=== PATIENT | male | born 1945 | race Caucasian/White ===

== ENCOUNTER 2016-09-20 19:56 | Emergency (ER) | payer OTHER ==
[2016-09-20 20:08] VITALS: BMI 24.1
--- NOTE | 2016-09-20 20:55 | PDOC ---
[id number]: HIGH BP Time Seen by Provider: 09/20/16 20:33 History Source: Patient Exam Limitations: No Limitations - History of Present Illness Initial Comments: 09/20/16 20:52 71-year-old male with no complaints presents with elevated blood pressure. Patient states his was taking her blood pressure and decided check his and was noted to be elevated so decided to bring him to the ER for further evaluation. Patient has no point of headache, dizziness, chest pain, shortness of breath, lower extremity edema, change in urine pattern, abdominal pain, or recent change in weight. Patient states had borderline hypertension numerous years ago but changed his lifestyle and never had to be placed on medication. Patient states has an appointment this upcoming week with a new physician although he was being seen by his previous PCP and had normal blood work done just this past May Timing/Duration: unsure Associated Symptoms: reports: denies symptoms Past History - Travel Traveled outside of the country in the last 30 days: No Close contact w/someone who was outside of country & ill: No - Past Medical History Allergies/Adverse Reactions: Allergies Allergy/AdvReac Type Severity Reaction Status Date / Time No Known Allergies Allergy Verified 09/20/16 20:08 Other medical history: hard of hearing - Psycho/Social/Smoking Cessation Hx Suicidal Ideation: No Smoking History: Never smoked Patient Lives Alone: No Lives with/in: spouse/SO Review of Systems - Review of Systems Able to Perform ROS?: Yes Constitutional: No: Symptoms Reported HEENTM: No: Symptoms Reported Respiratory: No: Symptoms reported Cardiac (ROS): No: Symptoms Reported ABD/GI: No: Symptoms Reported : No: Symptoms Reported Musculoskeletal: No: Symptoms Reported Integumentary: No: Symptoms Reported Neurological: No: Symptoms reported *Physical Exam - Vital Signs Last Vital Signs Temp Pulse Resp BP Pulse Ox 97.8 F 60 18 178/98 98 09/20/16 20:05 09/20/16 20:05 09/20/16 20:05 09/20/16 20:05 09/20/16 20:05 - Physical Exam General Appearance: Yes: Nourished, Appropriately Dressed. No: Apparent Distress HEENT: positive: EOMI, ORTIZ, TMs Normal, Pharynx Normal. negative: Pale Conjunctivae Neck: positive: Supple Respiratory/Chest: positive: Lungs Clear, Normal Breath Sounds. negative: Respiratory Distress, Accessory Muscle Use Cardiovascular: positive: Regular Rhythm, Regular Rate. negative: Murmur Gastrointestinal/Abdominal: positive: Soft. negative: Tenderness Extremity: positive: Normal Capillary Refill. negative: Pedal Edema Integumentary: positive: Normal Color, Warm, Moist Neurologic: positive: Motor Strength 5/5 (AMBULATORY) ED Treatment Course - LABORATORY CBC & Chemistry Diagram: 09/20/16 21:04 09/20/16 21:04 Medical Decision Making - Medical Decision Making 09/20/16 20:54 Patient with elevated BP reading at home but is asymptomatic. Patient does not have history of blood pressure presently but had history numerous years ago but change his lifestyle. Repeat blood pressure here slightly elevated. Due to patient's age AND HISTORY, I will do an EKG urine CBC and comp. *DC/Admit/Observation/Transfer Diagnosis at time of Disposition: Hypertension - Discharge Dispostion Disposition: HOME Condition at time of disposition: Stable - Referrals Referrals: Bernardino Kline MD [Primary Care Provider] - - Patient Instructions Printed Discharge Instructions: DI for High Blood Pressure Additional Instructions: Your Discharge Instructions: You must call primary care physician within 24 hours to arrange follow-up. Return to the Emergency Department with any new, persistent or worsening symptoms, for fever, chills, SOB, dizziness, headache or any other concerning changes that may occur.
[2016-09-20 21:13] LABS: BASOPHIL 0.7 % (0-2.0); EOSINOPHIL 1.5 % (0-4.5); MCH 25.9 pg (25.7-33.7); MCHC 32.5 g/dl (32.0-35.9); MEAN CELL VOLUME 79.6 fl (80-96); MEAN PLT VOLUME 8.2 fl (7.5-11.1); PLATELET COUNT 202 K/MM3 (134-434); RDW 15.4 % (11.9-15.9); WHITE BLOOD COUNT 6.2 K/mm3 (4.0-10.0)
[2016-09-20 21:24] LABS: URINE APPEARANCE CLEAR; URINE BILIRUBIN NEGATIVE (NEGATIVE); URINE BLOOD NEGATIVE (NEGATIVE); URINE COLOR AMBER; URINE GLUCOSE (UA) NEGATIVE (NEGATIVE); URINE KETONE NEGATIVE (NEGATIVE); URINE LEUK ESTERASE NEGATIVE (NEGATIVE); URINE NITRITE NEGATIVE (NEGATIVE); URINE PROTEIN NEGATIVE (NEGATIVE); URINE UROBILINOGEN NEGATIVE E.U./dl (0.2-1.0)
[2016-09-20 21:36] LABS: ALBUMIN 3.8 g/dl (3.4-5.0); ALK PHOS 70 U/L (45-117); ANION GAP 9 (8-16); BILIRUBIN,TOTAL 0.4 mg/dL (0.2-1.0); CALCIUM 9.2 mg/dL (8.5-10.1); CO2 26 mmol/L (21-32); COCKROFT - GAULT 66.38; CREATININE 1.1 mg/dL (0.7-1.3); GLUCOSE,RANDOM 93 mg/dL (74-106); SGOT/AST 20 U/L (15-37); SGPT/ALT 24 U/L (12-78)
--- NOTE | 2016-09-20 23:21 | PDOC ---
*Physical Exam - Vital Signs Last Vital Signs Temp Pulse Resp BP Pulse Ox 97.8 F 60 18 178/98 98 09/20/16 20:05 09/20/16 20:05 09/20/16 20:05 09/20/16 20:05 09/20/16 20:05 ED Treatment Course - LABORATORY CBC & Chemistry Diagram: 09/20/16 21:04 09/20/16 21:04 - ADDITIONAL ORDERS Additional order review: Laboratory Results 09/20/16 09/20/16 21:04 21:04 Sodium 140 Potassium 4.2 Chloride 105 Carbon Dioxide 26 Anion Gap 9 BUN 23 H Creatinine 1.1 Creat Clearance w eGFR > 60 Random Glucose 93 Calcium 9.2 Total Bilirubin 0.4 AST 20 ALT 24 Alkaline Phosphatase 70 Total Protein 7.0 Albumin 3.8 Urine Color Angie Urine Appearance Clear Urine pH 5.0 Urine Protein Negative Urine Glucose (UA) Negative Urine Ketones Negative Urine Blood Negative Urine Nitrite Negative Urine Bilirubin Negative Urine Urobilinogen Negative Ur Leukocyte Esterase Negative 09/20/16 21:04 RBC 5.24 MCV 79.6 L MCHC 32.5 RDW 15.4 MPV 8.2 Neutrophils % 55.0 Lymphocytes % 31.3 Monocytes % 11.5 H Eosinophils % 1.5 Basophils % 0.7 Medical Decision Making - Medical Decision Making 09/20/16 23:17 Patient endorsed to follow labs and disposition. Patient seen and evaluated is in no acute distress. labs reviewed not abnormality he will follow up with pmd on 09/23/16. I discussed the physical exam findings, ancillary test results and final diagnoses with the patient. I answered all of the patient's questions. The patient was satisfied with the care received and felt comfortable with the discharge plan and treatment plan. The Patient agrees to follow up with the primary care physician within 24-72 hours. *DC/Admit/Observation/Transfer Diagnosis at time of Disposition: Hypertension Qualifiers: Hypertension type: essential hypertension Qualified Code(s): I10 - Essential ( primary) hypertension - Discharge Dispostion Disposition: HOME Condition at time of disposition: Stable - Patient Instructions Printed Discharge Instructions: DI for High Blood Pressure Additional Instructions: Your Discharge Instructions: You must call primary care physician within 24 hours to arrange follow-up. Return to the Emergency Department with any new, persistent or worsening symptoms, for fever, chills, SOB, dizziness, headache or any other concerning changes that may occur.
[2016-09-21 01:10] VITALS: BP 155/85; PULSE 57; TEMP 97.7
--- NOTE | 2016-09-22 09:04 | EKG ---
Test Reason : Blood Pressure : / mmHG Vent. Rate : 057 BPM Atrial Rate : 057 BPM P-R Int : 196 ms QRS Dur : 076 ms QT Int : 402 ms P-R-T Axes : 066 029 053 degrees QTc Int : 391 ms SINUS BRADYCARDIA MODERATE VOLTAGE CRITERIA FOR LVH, MAY BE NORMAL VARIANT BORDERLINE ECG NO PREVIOUS ECGS AVAILABLE Confirmed by BRIDGET LOPEZ MD ([id number]) on 09/22/2016 9:04:20 AM Referred By: Confirmed By:BRIDGET LOPEZ MD
== END 2016-09-21 00:03 | disposition home or self-care (01) ==
LOC: JER 19:56
DX: I10 Essential (primary) hypertension (principal)
CPT/HCPCS: 36415; 80053; 81003; 85025; 93005; 93010; 99281-25

== ENCOUNTER 2017-08-21 08:38 | Day surgery (SDC) | payer OTHER ==
[2017-08-21] MEDS ORDERED: PROPOFOL 20 ML ONE ×2 (09:05)
[2017-08-21 09:14] VITALS: BMI 24.0
--- NOTE | 2017-08-21 09:48 | PROC ---
Endoscopy Procedure Endoscopy procedure completed. Please see scanned procedure report.
[2017-08-21 10:03] VITALS: TEMP 97.9
[2017-08-21 12:05] VITALS: BP 119/62; PULSE 61
== END 2017-08-21 10:40 | disposition home or self-care (01) ==
LOC: JASU-ENDO 08:38
PROVIDERS: ATTEND Internal Medicine Gastroenterology
PROC: 0DJD8ZZ Inspection of Lower Intestinal Tract, Via Natural or Artificial Opening Endoscopic (ICD-10-PCS; principal; 2017-08-21 09:30)
DX: Z12.11 Encounter for screening for malignant neoplasm of colon (principal); Z86.010 Personal history of colon polyps

== ENCOUNTER 2019-05-18 05:14 | Emergency (ER) | payer OTHER ==
[2019-05-18 05:28] VITALS: BMI 22.3
[2019-05-18] MEDS ORDERED: ONDANSETRON 4 MG/2 ML VIAL IVPUSH ONE (05:43)
[2019-05-18] MEDS ORDERED: SODIUM CHLORIDE 0.9% 500 ML INFUS.BAG IV ONE (05:43)
[2019-05-18] MEDS ORDERED: KETOROLAC TROMETHAMINE 15 MG/ML VIAL IVPUSH ONE (05:43)
--- NOTE | 2019-05-18 05:43 | PDOC ---
History of Present Illness - General History Source: Patient Exam Limitations: No Limitations <Kenya Hall - Last Filed: 05/18/19 07:13> - History of Present Illness Initial Comments: Saulo Schneider is a 74yo man with a PMH of well-controlled HTN who presents to the ED with left flank pain that started overnight. He states that the pain has also started to radiate to the left groin. Mr Schneider says that the pain started as a mild cramping pain but has become increasingly severe over the past few hours, now up to an 8/10. The pain waxes and wanes but has never completely resolved since starting. In addition to the pain, Mr Schneider also reports urinary frequency and urgency, as well as pain at the tip of his penis. He denies any dysuria or hematuria. He has not had any change in bowel habits, fever/chills, previous UTI or kidney stone. He does endorse nausea. <Nemo Trujillo - Last Filed: 05/18/19 07:37> - General Chief Complaint: Pain, Acute Stated Complaint: R/O KIDNEY PROBLEM Time Seen by Provider: 05/18/19 05:29 Past History <Kenya Hall - Last Filed: 05/18/19 07:13> - Past Medical History Anemia: No Asthma: No Cancer: No Cardiac Disorders: No CVA: No COPD: No CHF: No Dementia: No Diabetes: No GI Disorders: Yes (H/O COLON POLYPS) Disorders: No HTN: Yes Hypercholesterolemia: No Liver Disease: No Seizures: No Thyroid Disease: No - Surgical History Appendectomy: No Cholecystectomy: No Orthopedic Surgery: No - Psycho Social/Smoking Cessation Hx Smoking History: Never smoked Hx Alcohol Use: Yes Drug/Substance Use Hx: No Substance Use Type: None Hx Substance Use Treatment: No <Nemo Trujillo - Last Filed: 05/18/19 07:37> - Past Medical History Allergies/Adverse Reactions: Allergies Allergy/AdvReac Type Severity Reaction Status Date / Time No Known Allergies Allergy Verified 05/18/19 05:27 Home Medications: Ambulatory Orders Cholecalciferol (Vitamin D3) [Vitamin D3] 1,000 unit PO DAILY 08/21/17 Cyanocobalamin (Vitamin B-12) [Vitamin B12] 2,500 mcg PO DAILY 04/06/18 Magnesium 200 mg PO DAILY 08/21/17 [place]-3 Fatty Acids [[place]-3] 1,000 mg PO DAILY 08/21/17 Ondansetron [Zofran -] 4 mg PO TID PRN #9 tablet 05/18/19 Tamsulosin HCl [Flomax -] 0.4 mg PO HS #7 cap.er.24h 05/18/19 oxyCODONE HCL [Roxicodone -] 10 mg PO Q6H PRN #12 tablet MDD 4 05/18/19 Review of Systems - Review of Systems Comments:: General: No fevers, no chills, no weight or appetite change, no malaise HEENT: No changes in vision, no changes in hearing, no congestion, no sore throat CV: No chest pain, no palpitations, no LE edema Pulm: No SOB, no cough, no wheezing GI: No nausea or vomiting, no change in bowel habits, no melena : See HPI Musc: No back pain, no joint swelling, no recent injury Skin: No rash, no lesions, no erythema Endo: No excessive thirst, no heat/cold intolerance Heme: No unusual bruising or bleeding, no swollen glands Neuro: No syncope, no numbness/tingling, no focal weakness Vasc: No claudication Psych: No recent change in mood, no SI or HI <Nemo Trujillo - Last Filed: 05/18/19 07:37> *Physical Exam - Vital Signs Last Vital Signs Temp Pulse Resp BP Pulse Ox 98.0 F 54 L 20 180/99 H 100 05/18/19 05:15 05/18/19 05:15 05/18/19 05:15 05/18/19 05:15 05/18/19 05:15 <Kenya Hall - Last Filed: 05/18/19 07:13> - Vital Signs Last Vital Signs Temp Pulse Resp BP Pulse Ox 98.0 F 54 L 20 180/99 H 100 05/18/19 05:15 05/18/19 05:15 05/18/19 05:15 05/18/19 05:15 05/18/19 05:15 - Physical Exam General: Appears uncomfortable but in no acute distress HEENT: PERRL, EOMI, MMM, voice normal, normal neck ROM Cards: RRR, no murmur appreciated Pulm: Comfortable on room air, clear to auscultation bilaterally Abd: Soft, nontender, nondistended : Mild left CVA tenderness Ext: Atraumatic. No LE edema. ROM intact. Vasc: Extremities WWP. Neuro: A&Ox3, CN grossly intact, normal speech, motor/sensory grossly intact and symmetric Psych: Mood appropriate to situation <Nemo Trujillo - Last Filed: 05/18/19 07:37> ED Treatment Course - LABORATORY CBC & Chemistry Diagram: 05/18/19 06:06 05/18/19 06:06 - ADDITIONAL ORDERS Additional order review: Laboratory Results 05/18/19 06:06 Urine Color Yellow Urine Appearance Clear Urine pH 6.5 D Ur Specific [place] 1.012 Urine Protein Negative Urine Glucose (UA) Negative Urine Ketones Negative Urine Blood Negative Urine Nitrite Negative Urine Bilirubin Negative Urine Urobilinogen 0.2 Ur Leukocyte Esterase Negative 05/18/19 06:06 RBC 5.26 MCV 80.1 MCHC 32.9 RDW 14.9 MPV 7.8 Neutrophils % 78.4 D Lymphocytes % 11.7 D Monocytes % 8.3 Eosinophils % 0.8 Basophils % 0.8 - Medications Given in the ED: ED Medications Discontinued Medications Generic Name Dose Route Start Last Admin Trade Name Freq PRN Reason Stop Dose Admin Ketorolac Tromethamine 15 mg 05/18/19 05:43 05/18/19 06:08 Toradol Injection - IVPUSH 05/18/19 05:44 15 mg ONCE ONE Administration Ondansetron HCl 4 mg 05/18/19 05:43 05/18/19 06:09 Zofran Injection IVPUSH 05/18/19 05:44 4 mg ONCE ONE Administration Sodium Chloride 1,000 ml 05/18/19 05:43 05/18/19 06:10 Normal Saline - IV 05/18/19 05:44 1,000 ml ONCE ONE Administration <Kenya Hall - Last Filed: 05/18/19 07:13> - LABORATORY CBC & Chemistry Diagram: 05/18/19 06:06 05/18/19 06:06 - RADIOLOGY Radiology Studies Ordered: Category Date Time Status SPIRAL- RENAL-STONE CT [CT] Stat CT Scan 05/18/19 05:41 Ordered <Nemo Trujillo - Last Filed: 05/18/19 07:37> Medical Decision Making - Medical Decision Making 05/18/19 05:41 Saulo Schneider is a 74yo man with a PMH of well-controlled HTN who presents to the ED with left flank pain that radiates to the LLQ along with urinary frequency and urgency. - Most likely kidney stone given flank, lower abdominal pain along with urinary symptoms. Could be UTI but less likely - CBC, CMP, UA, UCx - CT kidney stone - IVF, toradol, zofran 05/18/19 07:25 - Labs without concerning abnormalities - CT w/ multiple left-sided stones. 8mm at UVJ, 4mm in bladder. Also notes 8 and 5mm stones in inferior pole of left kidney - Reassessed. Pt reports that pain has resolved. Updated with CT results. Discussed home care and urology follow up. Oxycodone and flomax prescribed by Dr Hall. Given urine strainers to catch stone. Pt states understanding of and agreement with the plan. Discussed with Dr Isabel Trujillo PGY2 <Nemo Trujillo - Last Filed: 05/18/19 07:37> Discharge - Discharge Information Problems reviewed: Yes - Admission No <Kenya Hall - Last Filed: 05/18/19 07:13> <Nemo Trujillo - Last Filed: 05/18/19 07:37> - Discharge Information Clinical Impression/Diagnosis: Ureterolithiasis Condition: Improved Disposition: HOME - Additional Discharge Information Prescriptions: Ondansetron [Zofran -] 4 mg PO TID PRN #9 tablet PRN Reason: Nausea oxyCODONE HCL [Roxicodone -] 10 mg PO Q6H PRN #12 tablet MDD 4 PRN Reason: Severe Pain Tamsulosin HCl [Flomax -] 0.4 mg PO HS #7 cap.er.24h - Follow up/Referral Referrals: Bernardino Kline MD [Primary Care Provider] - Armand Campuzano MD [Staff Physician] - Saulo Rosales MD [Staff Physician] - Rehan Barrett MD [Staff Physician] - - Patient Discharge Instructions Patient Printed Discharge Instructions: DI for Kidney Stones Additional Instructions: Discharge for patients: Your CT results were significant for obstructed stones and swelling of collecting system, Drink plenty of water/fluids, avoid caffeine or alcohol Strain all urine for the next 1-2 days and save any stone for analysis Ibuprofen/naproxen/acetaminophen as needed for [id number] pain. Use Motrin (also called Ibuprofen or Advil) 400 mg every 6 hours as needed for pain. If you have any stomach discomfort while taking Motrin, you can use TUMS to help. Oxycodone every 6 hours as needed for severe pain; Please do not drive or operate heavy machinery while on this medication because it can impair your judgement. This is a very addictive medication, do not take it unless you absolutely have to. Return to ER if you experience persistent pain/vomiting/fever/dehydration, difficulty urinating or inability to tolerate oral intake. Follow-up with your primary doctor within the next 2-3 days. Urologist follow up this week, referral given as well. (we will give you a list of urologists, but make sure they accept your insurance). Please bring your labs and imaging with you to your appointment. - Post Discharge Activity
[2019-05-18] MEDS ORDERED: KETOROLAC TROMETHAMINE 15 MG/ML VIAL ONE (05:50)
[2019-05-18] MEDS ORDERED: ONDANSETRON 4 MG/2 ML VIAL ONE (05:50)
[2019-05-18 06:20] LABS: BASO % 0.8 % (0-2.0); EOS % 0.8 % (0-4.5); HEMATOCRIT 42.2 % (35.4-49); HEMOGLOBIN 13.9 GM/dL (11.7-16.9); LYMPH % 11.7 % (8-40); MCH 26.4 pg (25.7-33.7); MCHC 32.9 g/dl (32.0-35.9); MEAN CELL VOLUME 80.1 fl (80-96); MEAN PLT VOLUME 7.8 fl (7.5-11.1); MONO % 8.3 % (3.8-10.2); NEUT % 78.4 % (42.8-82.8); PLATELET COUNT 189 K/MM3 (134-434); RBC 5.26 M/mm3 (4.00-5.60); RDW 14.9 % (11.9-15.9); WHITE BLOOD COUNT 8.9 K/mm3 (4.0-10.0)
[2019-05-18 06:23] LABS: PH,URINE 6.5 (5.0-8.0); URINE APPEARANCE CLEAR; URINE BILIRUBIN NEGATIVE (NEGATIVE); URINE COLOR YELLOW; URINE GLUCOSE (UA) NEGATIVE (NEGATIVE); URINE KETONE NEGATIVE (NEGATIVE); URINE LEUK ESTERASE NEGATIVE (NEGATIVE); URINE NITRITE NEGATIVE (NEGATIVE); URINE PROTEIN NEGATIVE (NEGATIVE); URINE UROBILINOGEN 0.2 mg/dL (0.2-1.0)
--- NOTE | 2019-05-18 06:30 | PDOC ---
Attending Attestation - Resident Resident Name: JavierrussellNemo - ED Attending Attestation I have performed the following: I have examined & evaluated the patient, The case was reviewed & discussed with the resident, I agree w/resident's findings & plan - HPI HPI: 05/18/19 06:29 74 YOM with h/o HTN presenting with acute onset of left flank pain, radiates to the left groin. +mild cramping pain but has become increasingly severe over the past few hours, now up to an 8/10. The pain waxes and wanes but has never completely resolved since starting. took one ibuprofen 200mg x 1 dose no relief. 05/18/19 06:52 - Physicial Exam PE: 05/18/19 06:52 Agree with the resident's HPI and PE as documented in the electronic medical record. NAD, well appearing, EOMI, PERRL, nl conjunctiva, anicteric; neck supple. lungs clear, RRR, abdomen soft nontender. no rebound, guarding. Mild left CVA tenderness. CAMPUZANO x4, no focal neuro deficits. No peripheral edema. normal color for ethnicity, WWP. - Medical Decision Making 05/18/19 06:51 Vital Signs Temp Pulse Resp BP Pulse Ox 98.0 F 54 L 20 180/99 H 100 05/18/19 05:15 05/18/19 05:15 05/18/19 05:15 05/18/19 05:15 05/18/19 05:15 DDx abdominal pain: Renal colic, biliary colic, metabolic/electrolyte derangements. GERD, PUD, esophageal spasm, pancreatitis, hepatitis, constipation , colitis, gastroenteritis, cholecystitis, UTI, pyelonephritis, ileus, SBO, medication side effect, hernia, appendicitis, diverticulitis, mesenteric ischemia. msk strain, mesenteric adenitis, psoas abscess. VS initially with HTN, likely from pain. no fever, no systemic findings. Clinically the patient presents with symptomatic ureterolithiasis (kidney stones ). IV pain medications - pain controlled with toradol, IV fluids were given. A CT Abdomen/Pelvis was obtained for concern for a possible obstructing kidney stone and to rule out other pathologic conditions. The CT confirmed revealed a stone at left proximal ureter, several nephrolithiasis seen in left kidney, measuring ~8mm. 8 mm calculus at the left UPJ junction causing mild left-sided hydronephrosis, there are nonobstructing stones in the interpolar region of both kidneys. 8 mm and 5 mm nonobstructing stone in the inferior pole collecting system of the left kidney as well. There is a 4 mm calculus within the urinary bladder which is what he most likely passed. The patient's labs were wnl, normal Cr function and lytes, no wbc ct; UA neg for infection. With pain medication the patient improved significantly. The patient is referred to the on-call urologist Dr Jarquin, for follow up and is discharged with oral narcotics for pain control, Flomax, antiemetics, and given the following return precautions: Fever > 100.5, pain not controlled with narcotics, worsening pain, dehydration, vomiting or any other concerns and to strain the urine. NSAIDS/tylenol for mild to moderate pain, rx oxycodone PRN for more severe pain. zofran for nausea, adequate hydration and oral fluids and air conditioning in hot weather. urine strainer to catch urine. discharge stable condition, several urologist referrals given. pt verbalized understanding of impression and plan, return precautions for fever /worsening pain, dehydration, inability to pool PO intake. 05/18/19 07:13 05/18/19 07:14
[2019-05-18 07:04] LABS: ALBUMIN 3.9 g/dl (3.4-5.0); BILIRUBIN,TOTAL 0.6 mg/dL (0.2-1); BLOOD UREA NITROGEN 21.6 mg/dL (7-18); CALCIUM 9.4 mg/dL (8.5-10.1); CREATININE 1.1 mg/dL (0.55-1.3); POTASSIUM 4.5 mmol/L (3.5-5.1)
[2019-05-18 07:56] VITALS: BP 154/71; PULSE 71; TEMP 98.1
== END 2019-05-18 07:30 | disposition home or self-care (01) ==
LOC: JER 05:14
PROC: 3E033GC Introduction of Other Therapeutic Substance into Peripheral Vein, Percutaneous Approach (ICD-10-PCS; principal; 2019-05-18)
PROC: 3E0333Z Introduction of Anti-inflammatory into Peripheral Vein, Percutaneous Approach (ICD-10-PCS; 2019-05-18)
DX: N20.1 Calculus of ureter (principal); I10 Essential (primary) hypertension
CPT/HCPCS: 36415; 74176-TC; 80053; 81003; 85025; 87086; 99283-25

== ENCOUNTER 2019-06-13 06:13 | Day surgery (SDC) | payer OTHER ==
[2019-06-09 18:40] VITALS: BMI 22.2
[2019-06-13] MEDS ORDERED: SUCCINYLCHOLINE CHLORIDE 200 MG/10 ML SYRINGE ONE (07:40)
[2019-06-13] MEDS ORDERED: PROPOFOL 20 ML ONE ×2 (07:40)
[2019-06-13] MEDS ORDERED: EPHEDRINE SULFATE/0.9% NACL/PF 50 MG/10 ML SYRINGE NR ONE (07:41)
[2019-06-13] MEDS ORDERED: LIDOCAINE HCL/PF 2% SDV 5ML VIAL ONE (07:44)
[2019-06-13] MEDS ORDERED: MIDAZOLAM HCL 2 MG/2 ML SINGLE DOSE VIAL ONE (08:04)
[2019-06-13] MEDS ORDERED: IOHEXOL 300 MG/ML INFUS..BTL IV ONE ×2 (08:44)
[2019-06-13] MEDS ORDERED: oxyCODONE HCL 5 MG TABLET PO PRN ×2 (08:47)
[2019-06-13] MEDS ORDERED: ACETAMINOPHEN 325 MG TABLET (FP) PO PRN (08:47)
[2019-06-13] MEDS ORDERED: ONDANSETRON 4 MG/2 ML VIAL IVPUSH PRN (08:47)
[2019-06-13] MEDS ORDERED: LACTATED RINGERS SOLUTION 1,000 ML IV SCH (09:00)
[2019-06-13] MEDS ORDERED: GENTAMICIN SO4 80 MG/2 ML VIAL ONE (09:01)
[2019-06-13] MEDS ORDERED: GENTAMICIN 80MG PREMIX BAG IVPB ONE (09:05)
[2019-06-13] MEDS ORDERED: MINERAL OIL/PETROLATUM,WHITE 3.5 GM TUBE ONE (09:37)
--- NOTE | 2019-06-13 10:58 | OP ---
Operative Note - Note: Operative Date: 06/13/19 Pre-Operative Diagnosis: left ureteral stone Operation: cystoscopy/left retrograde pyelogram/left ureteroscopic laser lithotripsy/left ureteroscopic stone basketing/left ureteral stent placement Findings: 7mm mid ureteral obstructing stone with proximal hydroureteronephrosis Post-Operative Diagnosis: Same as Pre-op Surgeon: Austin Haywood Anesthesia: General Specimens Removed: ureteral stone fragments Drains & Tubes with Location: 6/26 fr
[2019-06-13] MEDS ORDERED: ACETAMINOPHEN 325 MG TABLET (FP) ONE (11:49)
[2019-06-13 14:10] VITALS: BP 145/82; PULSE 73; TEMP 98.3
--- NOTE | 2019-06-14 08:11 | OP ---
DATE OF OPERATION: 06/13/2019 PREOPERATIVE DIAGNOSIS: Left ureteral stone. POSTOPERATIVE DIAGNOSIS: Left ureteral stone. PROCEDURE PERFORMED: Cystoscopy, left retrograde pyelogram, left ureteroscopic laser lithotripsy, left ureteroscopic stone basketing and left ureteral stent placement. SURGEON: Laith Barrios MD ANESTHESIA: General. DESCRIPTION OF PROCEDURE: The patient was brought to the operating room and placed in the supine position on the operating room table. Anesthesia and preoperative antibiotics were administered. The patient was then placed in the dorsal lithotomy position and prepped and draped in the usual sterile manner. Cystoscopy was performed, and there was no evidence of stones or neoplasm noted within the bladder. A 3+ obstructive prostate was noted, with 2+ bladder trabeculations, with multiple cellules seen. At this point the left ureteral orifice was identified. A flat plate showed a 7+ mm calcification along the lower ureter. A retrograde pyelogram was performed and showed that the calcification was within the ureter and was causing complete obstruction, with no contrast passed proximally. At this point, with mild difficulty, a Sensor wire was passed proximally into the kidney. With this accomplished, ureteroscopy was performed. The stone was visualized. The holmium laser was utilized to lithotripsy the stone without complications. All stone fragments were basketed and removed and sent for analysis. There were no complications noted. A 6-[place] 26-cm stent was then placed utilizing the Seldinger technique, without complications. The patient tolerated the procedure very well. It must be added there were 3 large calcifications noted within the kidney, which will require subsequent extracorporeal shock wave lithotripsy. LAITH BARRIOS M.D. /[id number]
--- NOTE | 2019-06-15 19:40 | PATH ---
Surgical Pathology Report Patient Name: MOOK VILLAFANA Med. Rec. #: [id number] /Age/Gender: 1945 (Age: 74) / M Account: [id number] Location: [facility] SUR[facility]ICAL Taken: 06/13/2019 Received: 06/13/2019 Reported: 06/15/2019 Physicians: Austin Haywood Specimen(s) Received LEFT URETERAL STONE Clinical History Calculus of left kidney Final Diagnosis LEFT URETERAL STONE, REMOVAL: CONSISTENT WITH URETERAL STONE. SENT FOR CHEMICAL ANALYSIS. Electronically Signed Sissy Nieto M.D. Gross Description Received fresh labeled "left ureteral stone," are 4 brown, irregular calculi ranging from 0.4-0.5 cm in greatest dimension. The specimen is sent for chemical analysis. DL/06/13/2019 saudi06/13/2019
[2019-06-26 15:57] LABS: SIZE 5mm
[2019-06-26 15:58] LABS: CA OXALATE MONOHYDR. 100%; WEIGHT 116 mg
== END 2019-06-13 14:10 | disposition home or self-care (01) ==
LOC: JASU-SURG 06:13
PROVIDERS: ATTEND Urology
PROC: 0TF78ZZ Fragmentation in Left Ureter, Via Natural or Artificial Opening Endoscopic (ICD-10-PCS; principal; 2019-06-13 08:00)
PROC: 0T778DZ Dilation of Left Ureter with Intraluminal Device, Via Natural or Artificial Opening Endoscopic (ICD-10-PCS; 2019-06-13 08:00)
PROC: BT1FYZZ Fluoroscopy of Left Kidney, Ureter and Bladder using Other Contrast (ICD-10-PCS; 2019-06-13 08:00)
DX: N20.1 Calculus of ureter (principal)
CPT/HCPCS: 36415; 76000-TC-FY; 82360; 88300-TC; 94760

== ENCOUNTER 2019-06-13 22:34 | Emergency (ER) | payer OTHER ==
[2019-06-13 22:51] VITALS: BMI 22.2
--- NOTE | 2019-06-14 02:17 | PDOC ---
History of Present Illness - General Chief Complaint: Hematuria Stated Complaint: FOLLOW UP History Source: Patient Exam Limitations: No Limitations - History of Present Illness Initial Comments: 74 yo M with a hx of HTN and nephrolithiasis s/p lithotripsy for a ureteral stone yesterday presents with hematuria with intermittent flow of catheter since the procedure. Per the patient, he states his larger pace bag, attached to the pace, was not draining urine and he was having mild suprapubic cramps. Prior to presentation to the emergency department, he switched the bag and it had flow, resolving his cramps. The patient is concerned for clogging in the catheter. Denies the following: fevers, chills, SOB, chest pain, diarrhea, hematochezia, and leg pain/swelling. Allergies: NKDA Past History - Past Medical History Allergies/Adverse Reactions: Allergies Allergy/AdvReac Type Severity Reaction Status Date / Time gluten Allergy Verified 06/13/19 22:51 Home Medications: Ambulatory Orders Cholecalciferol (Vitamin D3) [Vitamin D3] 1,000 unit PO DAILY 08/21/17 Cyanocobalamin (Vitamin B-12) [Vitamin B12] 2,500 mcg PO DAILY 08/21/17 Magnesium 200 mg PO DAILY 08/21/17 [place]-3 Fatty Acids [[place]-3] 1,000 mg PO DAILY 08/21/17 Tamsulosin HCl [Flomax -] 0.4 mg PO HS #7 cap.er.24h 05/18/19 Doxazosin Mesylate [Cardura] 4 mg PO DAILY 06/09/19 Anemia: No Asthma: No Cancer: No Cardiac Disorders: No CVA: No COPD: No CHF: No Dementia: No Diabetes: No GI Disorders: Yes (H/O COLON POLYPS) Disorders: No HTN: Yes Hypercholesterolemia: No Liver Disease: No Seizures: No Thyroid Disease: No - Surgical History Appendectomy: No Cholecystectomy: No Orthopedic Surgery: No - Psycho Social/Smoking Cessation Hx Smoking History: Never smoked Have you smoked in the past 12 months: No Information on smoking cessation initiated: No Hx Alcohol Use: No Drug/Substance Use Hx: No Substance Use Type: None Hx Substance Use Treatment: No Review of Systems - Review of Systems Able to Perform ROS?: Yes Is the patient limited Estonian proficient: No Constitutional: No: Chills, Diaphoresis, Fever, Weakness HEENTM: No: Eye Pain, Ear Pain, Nose Pain, Throat Pain, Mouth Pain Respiratory: No: Cough, Shortness of Breath, Hemoptysis Cardiac (ROS): No: Chest Pain, Lightheadedness, Palpitations, Syncope, Chest Tightness ABD/GI: No: Constipated, Diarrhea, Difficulty Swallowing, Nausea, Rectal Bleeding, Vomiting, Tarry Stools : Yes: Hematuria. No: Burning, Dysuria, Discharge, Flank Pain, Incontinence, Testicular Mass, Testicular Swelling, Testicular Pain Musculoskeletal: No: Back Pain, Joint Pain, Neck Pain Integumentary: No: Bruising, Erythema, Rash Neurological: No: Headache, Numbness, Tingling Psychiatric: No: Change in Appetite Endocrine: No: Unexplained Weight Loss Hematologic/Lymphatic: No: Anemia *Physical Exam - Vital Signs Last Vital Signs Temp Pulse Resp BP Pulse Ox 97.8 F 76 18 156/76 100 06/13/19 22:48 06/13/19 22:48 06/13/19 22:48 06/13/19 22:48 06/13/19 22:48 - Physical Exam General Appearance: Yes: Nourished, Appropriately Dressed. No: Apparent Distress, Intoxicated HEENT: positive: EOMI, ORTIZ, Normal Voice, Symmetrical, Pharynx Normal, Hearing Grossly Normal. negative: Pale Conjunctivae, Scleral Icterus (R), Scleral Icterus (L), Muffled/Hoarse voice, Pharyngeal Erythema, Tonsillar Exudate, Tonsillar Erythema, Nasal Congestion, Rhinorrhea, Sinus Tenderness, Excessive drooling Neck: positive: Trachea midline, Supple. negative: Tender, Lymphadenopathy (R) , Lymphadenopathy (L), Tender lateral, Tender midline Respiratory/Chest: positive: Lungs Clear, Normal Breath Sounds. negative: Chest Tender, Respiratory Distress, Accessory Muscle Use, Crackles, Rales, Rhonchi, Stridor, Wheezing Cardiovascular: positive: Regular Rhythm, Regular Rate, S1, S2. negative: Systolic Murmur Gastrointestinal/Abdominal: positive: Normal Bowel Sounds, Flat, Soft. negative : Tender, Distended, Guarding, Rebound Male Genitalia: positive: normal genitalia, hematuria, other (pace catheter in place attached to a pace with active drainage of serosanguinous fluid). negative: discharge, testicular tenderness, epididymus tender Lymphatic: negative: Adenopathy Musculoskeletal: positive: Normal Inspection. negative: CVA Tenderness, Vertebral Tenderness Extremity: positive: Normal Capillary Refill, Normal Inspection, Normal Range of Motion. negative: Tender, Swelling, Calf Tenderness Integumentary: positive: Normal Color, Dry, Warm Neurologic: positive: cytogenetic technician II-XII NML intact, Fully Oriented, Alert, Normal Mood/ Affect Medical Decision Making - Medical Decision Making 74 yo M with a hx of HTN and nephrolithiasis s/p lithotripsy for a ureteral stone yesterday presents with hematuria with intermittent flow of catheter since the procedure. Initial vitals: Initial Vital Signs Temp Pulse Resp BP Pulse Ox 97.8 F 76 18 156/76 100 06/13/19 22:48 06/13/19 22:48 06/13/19 22:48 06/13/19 22:48 06/13/19 22:48 Work up: ddx: patient presents with hematuria. pace bag now draining. 15 cc of sterile NS was gently injected into the pace with good return to the pace bag, ensuring patency. Patient's urologist, Dr. Haywood, was contacted and stated he can be discharged and followed up outpatient within the next 2 days. Patient agreed to the plan. Urine continues to drain into pace bag at the time of discharge. Dispo: Discharge Discharge - Discharge Information Problems reviewed: Yes Clinical Impression/Diagnosis: Hematuria Disposition: HOME - Admission No - Follow up/Referral Referrals: Kinsey Kwan MD [Primary Care Provider] - - Patient Discharge Instructions Patient Printed Discharge Instructions: DI for Hematuria Additional Instructions: You were seen in the emergency department for the evaluation of your hematuria. I spoke to Dr. Haywood who states he will follow up with you in the morning. Please return to the emergency department if you have worsening or new symptoms. Thank you. - Post Discharge Activity
--- NOTE | 2019-06-14 02:33 | PDOC ---
Attending Attestation - Resident Resident Name: Armando Clayton - ED Attending Attestation I have performed the following: I have examined & evaluated the patient, The case was reviewed & discussed with the resident, I agree w/resident's findings & plan - HPI HPI: 06/14/19 03:30 see resident hpi - Physicial Exam PE: 06/14/19 03:30 agree with resident exam - Medical Decision Making 06/14/19 03:30 74-year-old male status post lithotripsy yesterday and now with slowly draining Met[place] and hematuria After gentle flushing at the bedside there is active draining into the Metz leg bag Patient is afebrile and well-appearing Case discussed with patient's urologist who states he will follow-up with him in the office We will DC home
[2019-06-14] MEDS ORDERED: ACETAMINOPHEN 325 MG TABLET (FP) PO ONE (03:19)
[2019-06-14] MEDS ORDERED: ACETAMINOPHEN 325 MG TABLET (FP) ONE (03:30)
[2019-06-14 03:48] VITALS: BP 125/77; PULSE 69; TEMP 97.6
== END 2019-06-14 03:48 | disposition home or self-care (01) ==
LOC: JER 22:34
DX: R31.9 Hematuria, unspecified (principal); Z98.890 Other specified postprocedural states; I10 Essential (primary) hypertension; Z86.010 Personal history of colon polyps; Z87.442 Personal history of urinary calculi
CPT/HCPCS: 99283-25

== ENCOUNTER 2019-07-11 07:27 | Day surgery (SDC) | payer OTHER ==
[2019-07-08 16:23] VITALS: BMI 22.2
[2019-07-11] MEDS ORDERED: PROPOFOL 20 ML ONE (09:00)
[2019-07-11] MEDS ORDERED: MIDAZOLAM HCL 2 MG/2 ML SINGLE DOSE VIAL ONE (09:00)
[2019-07-11] MEDS ORDERED: KETOROLAC TROMETHAMINE 30 MG/1 ML VIAL ONE (09:27)
[2019-07-11 10:06] VITALS: TEMP 97.4
--- NOTE | 2019-07-11 10:10 | OP ---
Operative Note - Note: Operative Date: 07/11/19 Pre-Operative Diagnosis: Left Renal stone Operation: Left ESWL Findings: x2 7 mm mid pole Left renal stones Surgeon: Austin Haywood Anesthesia: Fractional Estimated Blood Loss (mls): 0 Drains & Tubes with Location: Double B/L JJ stents Drains, Volume Out (mls): 2 Operative Report Dictated: Yes
[2019-07-11] MEDS ORDERED: TAMSULOSIN HCL 0.4 MG CAP ONE (13:04)
[2019-07-11] MEDS ORDERED: TAMSULOSIN HCL 0.4 MG CAP PO ONE ×2 (13:09→13:10)
[2019-07-11] MEDS ORDERED: LIDOCAINE HCL 2% JELLY 10 ML CARTRIDGE ONE (14:51)
[2019-07-11 15:37] VITALS: BP 117/69; PULSE 66
--- NOTE | 2019-07-11 20:38 | OP ---
DATE OF OPERATION: 07/11/2019 PREOPERATIVE DIAGNOSIS: Left renal stone. POSTOPERATIVE DIAGNOSIS: Left renal stone. PROCEDURE: Left extracorporeal shock wave lithotripsy. ATTENDING: Laith Barrios MD ANESTHESIA: Fractional. DESCRIPTION OF OPERATION: Patient was brought in the operating room, placed in supine position on the operating room table. Ultrasonography and fluoroscopy were performed. Two stones, each measuring 7 mm were noted within the left kidney. Extracorporeal shock wave lithotripsy was commenced once anesthesia and preoperative antibiotics were administered; 1500 impulses at 17-18 joules of power were administered to each stone. Excellent fragmentation was noted. There were no complications noted. Patient tolerated the procedure very well. LAITH BARRIOS M.D. /[id number]
== END 2019-07-11 15:35 | disposition home or self-care (01) ==
LOC: JASU-SURG 07:27
PROVIDERS: ATTEND Urology
PROC: 0TF4XZZ Fragmentation in Left Kidney Pelvis, External Approach (ICD-10-PCS; principal; 2019-07-11 09:30)
DX: N20.0 Calculus of kidney (principal)

== ENCOUNTER 2023-10-19 20:42 | Emergency (ER) | payer OTHER ==
[2023-10-19 21:00] VITALS: BP 161/96; PULSE 59; RESP 18; TEMP 98; BMI 22.8
[2023-10-19] MEDS ORDERED: DIPHTH,PERTUSS(ACELL),TET 0.5 ML DISP.SYRIN IM ONE (22:08)
[2023-10-19] MEDS: DIPHTH,PERTUSS(ACELL),TET 0.5 ML DISP.SYRIN IM ONE (22:10)
== END 2023-10-19 22:24 | disposition home or self-care (01) ==
LOC: FER 20:42
PROC: 3E0234Z Introduction of Serum, Toxoid and Vaccine into Muscle, Percutaneous Approach (ICD-10-PCS; principal; 2023-10-19)
DX: S61.200A Unspecified open wound of right index finger without damage to nail, initial encounter (principal); W26.8XXA Contact with other sharp object(s), not elsewhere classified, initial encounter; Y93.G3 Activity, cooking and baking
CPT/HCPCS: 90471; 90715; 99284-25